=== PATIENT | male | born 1965 | race Caucasian/White ===

== ENCOUNTER 2017-01-30 20:02 | Emergency (ER) | payer OTHER, BC ==
[~2017-01-30] VITALS: Ht 175.3 cm; Wt 85.4 kg
[2017-01-30 20:13] VITALS: TEMP 36.9; Ht 175.3 cm; Wt 85.4 kg
[2017-01-30] MEDS ORDERED: CYAN10004 PO (20:25)
[2017-01-30] MEDS ORDERED: TAMS0.4C38 PO (20:25)
[2017-01-30] MEDS ORDERED: TADA10TA PO (20:25)
[2017-01-30] MEDS ORDERED: GLUCTAB18 PO (20:25)
[2017-01-30] MEDS ORDERED: REDCAP2 PO (20:25)
[2017-01-30] MEDS ORDERED: FLV1 PO (20:25)
[2017-01-30] MEDS ORDERED: METH2.5T PO (20:25)
[2017-01-30] MEDS ORDERED: CHOL100027 PO (20:25)
[2017-01-30] MEDS ORDERED: UNKNOWN ANTIBIOTIC PO (20:25)
[2017-01-30] MEDS ORDERED: HYDROCODONE/ACETAMOPHEN 5/325MG TAB PO STA (20:42)
--- NOTE | 2017-01-30 21:17 | DIAGNOSTIC IMAGING REPORT ---
LEFT KNEE 3 VIEWS CLINICAL HISTORY: knee pain after twisting injury, eval fx, dislocation pain COMPARISON: None. DISCUSSION: The bones and joint spaces appear intact. There is no evidence of fracture, dislocation or bony disease. There is no evidence for soft tissue swelling. IMPRESSION: Negative study. Electronically signed by: Abdelrahman Fong M.D. 01/30/2017 9:16 PM Dictated Date/Time: 01/30/2017 9:16 PM
--- NOTE | 2017-01-30 22:36 | EMERGENCY ROOM VISIT NOTE ---
ED Visit Note First contact with patient: 20:27 CHIEF COMPLAINT: Left knee pain HISTORY OF PRESENT ILLNESS: This 51-year-old male patient presents to the emergency department with his spouse after sustaining an injury to the left knee earlier today. Patient states he was walking on uneven ground, stepped on a rock and his knee twisted slightly, he states he felt a pop in the knee with instant pain. The patient denies any other injuries besides their knee. The patient denies swelling or bruising. There is pain to the medial aspect of the knee. They rate the pain as throbbing and 8/10. The patient states they are able to walk on it, but has significant pain with any attempts to bend or straighten the knee. No numbness or tingling. No previous injuries to this knee. No ankle, foot or hip pain. REVIEW OF SYSTEMS: A 6 system review of systems was completed with positives and pertinent negatives listed in the HPI. ALLERGIES: See body of chart. MEDICATIONS: See body of chart. PMH: See body of chart. SOCIAL HISTORY: See body of chart. PHYSICAL EXAM: Vital Signs: Reviewed Nurse's notes, vital signs stable. GENERAL : Awake and alert, no acute distress, but appears in pain, well-developed, well- nourished. MENTAL STATUS: Alert, oriented to person place and time, and cooperative. MUSCULOSKELETAL: The left knee is not swollen. There is no ecchymosis. There is no joint effusion present. The patient is tender inferiorly and medially to the patella. There is no joint line tenderness. The patella does not subluxate. Range of motion is severely limited due to pain. Strength of the quads and hamstrings is 5/5. Cindy's is pain positive. Kian's and Anterior Drawer tests are negative. There is pain with varus and valgus stressing. The foot and toes are warm and well-perfused. Dorsalis pedis pulse 2+. Sensation to pain and light touch is intact. Capillary refill less than 2 seconds. EMERGENCY DEPARTMENT COURSE: I examined the patient. X-rays of the left knee were reviewed by myself and read by radiology and reveal no acute bony abnormality and no effusion. The patient was placed in a knee immobilizer under my direction and the position was satisfactory. The patient was instructed on the use of crutches. The patient was instructed to follow up with orthopedics. The patient was discharged home in good condition. LEFT KNEE 3 VIEWS CLINICAL HISTORY: knee pain after twisting injury, eval fx, dislocation pain COMPARISON: None. DISCUSSION: The bones and joint spaces appear intact. There is no evidence of fracture, dislocation or bony disease. There is no evidence for soft tissue swelling. IMPRESSION: Negative study. Current/Historical Medications Scheduled Cholecalciferol (Vitamin D 1000 Unit), 1,000 INTER.UNIT PO DAILY Cyanocobalamin (Vitamin B-12 1000 Mcg), 1,000 MCG PO DAILY Folic Acid (Folic Acid), 1 MG PO DAILY Glucosamine-Chondroitin (Osteo Bi-Flex Regular Str), 1 TAB PO DAILY Methotrexate (Methotrexate), 8 TABS PO WK Red Yeast Rice Extract (Red Yeast Rice), 1 TAB PO DAILY Tadalafil (Cialis), 10 MG PO UD Tamsulosin Hcl (Flomax), 0.4 MG PO DAILY [Unknown Antibiotic], 1 TAB PO QID Vital Signs Date Time Temp Pulse Resp B/P Pulse Ox O2 Delivery O2 Flow Rate FiO2 01/30/17 23:19 58 18 118/73 97 01/30/17 20:13 36.9 85 16 129/81 96 Room Air Medications Administered Medications (Trade) Dose Ordered Sig/Desi Route Start Time Stop Time Status Last Admin Dose Admin Acetaminophen/ Hydrocodone Bitart (Wheelwright 5/325 Tab) 1 tab NOW STAT PO 01/30/17 20:42 01/30/17 20:45 DC 01/30/17 20:50 1 TAB Acetaminophen/ Hydrocodone Bitart (Wheelwright 5/325mg Home Pack) 1 homepack UD ONCE PO 01/30/17 23:00 01/30/17 23:01 DC 01/30/17 23:15 1 HOMEPACK Departure Information Dispostion Home / Self-Care Condition GOOD Referrals Ubaldo Middleton D.O. (PCP) Johnny Acevedo D.O. Patient Instructions ED Sprain Knee, [facility] Additional Instructions You have been treated in the Emergency Department for Knee Pain. You have received pain medicine in the emergency department which impairs your ability to operate a vehicle. It is illegal for you to drive after receiving these medicines. You have been prescribed Wheelwright as to be used for pain control. This is a narcotic medication. You cannot drive or consume alcohol while on this medicine. This medicine should only be used for pain that cannot be controlled with dmwl-vdy-gfiqwht pain medicines. For pain control, you can use the following zehm-zkl-qlmtrwb medicines (if >12 yo): - Regular strength (325mg/tab) Tylenol (acetaminophen) 2 tabs every 4-6 hours as needed. Do not exceed 12 tablets in a 24 hour period. Avoid taking more than 4 grams (4000 mg) of Tylenol per day. This includes any other sources of acetaminophen you may take on a regular basis. - Regular strength (200 mg/tab) Advil (ibuprofen) 1-2 tabs every 4-6 hours as needed. Do not exceed a dose of 3200 mg per day. If this is a recent injury (<24 hrs), ice can be applied to the area of pain for the first 3 days to help decrease pain and inflammation. Ice massages can be performed by freezing water in a paper cup, peeling back the cup to expose the ice and then massaging over the affected area. You have been provided the number for an Orthopaedic Surgeon. You should call this number as soon as possible to establish a follow-up visit from today's Emergency Department visit. Keep the knee brace in place until cleared by Orthopedics. Use the crutches you have been provided to keep ALL weight off of the knee until weight bearing is tolerable. Return to the Emergency Department if your current symptoms worsen despite treatment course outlined above.
[2017-01-30] MEDS ORDERED: NORCO 5/325MG HOME PACK PO ONE (23:00)
[2017-01-30 23:19] VITALS: BP 118/73; PULSE 58; O2SAT 97
--- NOTE | 2017-02-03 07:50 | EDITING REQUIRED CODING QUERY ---
TREATMENT RENDERED WITHOUT A DIAGNOSIS 63 To promote full compliance with coding requirements relating to patient care, physician participation is requested in all cases of hand heel seat fitter uncertainty. Please assist us with the question(s) below: DOS 01/30/17 Coding Question: Please document the Final Diagnosis for this patient Provider Response: Thank you Kylah Sharif
== END 2017-01-30 23:25 | disposition home or self-care (01) ==
LOC: C.EDB 20:04 → C.EDD 23:25
DX: S83.92XA Sprain of unspecified site of left knee, initial encounter (principal); X50.1XXA Overexertion from prolonged static or awkward postures, initial encounter; Y92.480 Sidewalk as the place of occurrence of the external cause; Z79.899 Other long term (current) drug therapy

== ENCOUNTER → 2017-02-28 | Outpatient (CLI) | payer OTHER, BC ==
[~2017-02-28] MED LIST: CHOL100027 PO; CYAN10004 PO; FLV1 PO; GLUCTAB18 PO; METH2.5T PO; REDCAP2 PO; TADA10TA PO; TAMS0.4C38 PO; UNKNOWN ANTIBIOTIC PO
--- NOTE | 2017-02-28 13:45 | DIAGNOSTIC IMAGING REPORT ---
LEFT KNEE MRI HISTORY: Left knee pain. COMPARISON STUDY: Left knee 01/30/2017. TECHNIQUE: Multiplanar multisequence MRI of the left knee was performed according to standard department protocol without the use of contrast. FINDINGS: Menisci: The lateral meniscus is intact. There is a bucket-handle tear of the medial meniscus with a flipped fragment anterior to the posterior horn. There is also a complex tear involving the posterior horn of the medial meniscus which extends to the posterior meniscal root. There is a 7 mm parameniscal cyst at the body of the medial meniscus. Ligaments: The anterior and posterior cruciate ligaments are intact. The medial and lateral collateral ligaments are normal in appearance. Extensor mechanism: The quadriceps tendon and patellar ligament are intact. Small linear cystic focus within the medial aspect of the patellar ligament. This may represent a small ganglion cyst. Articular cartilage and bone: The articular cartilage is intact, and normal marrow signal intensity is seen throughout the imaged osseous structures. Joint effusion: None. Soft tissues: A 5.1 x 2.6 x 0.9 cm popliteal cyst. IMPRESSION: 1. Complex tear within the medial meniscus as described above with an associated bucket-handle component. 2. There is a 7 mm parameniscal cyst at the body of the medial meniscus. Electronically signed by: Silverio Jones M.D. 02/28/2017 1:43 PM Dictated Date/Time: 02/28/2017 1:36 PM
== END | disposition home or self-care (01) ==
LOC: C.MRI 11:14
PROVIDERS: ATTEND Physician Assistant
DX: M25.562 Pain in left knee (principal)

== ENCOUNTER → 2017-03-03 | Outpatient (CLI) | payer OTHER, BC ==
[2017-03-03 14:53] LABS: BASO % 1.2 %; BASO ABS # 0.08 K/uL (0-0.2); COMPLETE YES; EOS % 2.6 %; HEMATOCRIT 41.8 % (42-52); IG% 0.1 %; LYMPH % 27.5 %; LYMPH ABS # 1.89 K/uL (1.2-3.4); MEAN CELL VOLUME 96.3 fL (80-100); MEAN CORPUSCULAR HEMOGLOBIN 32.9 pg (25-34); MEAN CORPUSCULAR HGB CONC 34.2 g/dl (32-36); MEAN PLATELET VOLUME 12.1 fL (7.4-10.4); MONO % 8.9 %; NEUT % 59.7 %; PLATELET COUNT 247 K/uL (130-400); RED BLOOD COUNT 4.34 M/uL (4.7-6.1); WHITE BLOOD COUNT 6.87 K/uL (4.8-10.8)
[2017-03-03 15:18] LABS: CALCIUM 8.9 mg/dl (8.5-10.1)
[2017-03-03 15:21] LABS: BLOOD UREA NITROGEN 15 mg/dl (7-18); BUN/CREATININE RATIO 13.4 (10-20); CARBON DIOXIDE 27 mmol/L (21-32); CHLORIDE 107 mmol/L (98-107); GLUCOSE 87 mg/dl (70-99); POTASSIUM 4.4 mmol/L (3.5-5.1); SODIUM 142 mmol/L (136-145)
== END | disposition home or self-care (01) ==
LOC: C.LAB1850 11:34
PROVIDERS: ATTEND Physician Assistant
DX: S83.212A Bucket-handle tear of medial meniscus, current injury, left knee, initial encounter (principal); X58.XXXA Exposure to other specified factors, initial encounter

== ENCOUNTER → 2017-03-11 | Day surgery (SDC) | payer OTHER, BC ==
[2017-03-03 13:41] VITALS: Ht 175.3 cm; Wt 84.1 kg
[~2017-03-11] VITALS: Ht 175.3 cm; Wt 84.1 kg
[~2017-03-11] MED LIST changes: +ATROPINE SULFATE 0.1 MG/ML 5ML SYR IV PRN; +BUPIVACAINE/EPINEPHRINE 0.5% MPF 1:200,000 30 ML VIAL ONE; +CEFAZOLIN 2000 MG/60 ML D5W IV SCH; +DEXAMETHASONE SOD INJ 4 MG/ML VIAL ONE; +EpHEDrine SULFATE INJ 50 MG/ML AMP IV PRN; +FENTANYL CITRATE INJ 50 MCG/1 ML 2 ML VIAL IV PRN; +FENTANYL CITRATE INJ 50 MCG/1 ML 2 ML VIAL ONE; +HYDROCODONE/ACETAMOPHEN 5/325MG TAB PO PRN; +LACTATED RINGER'S 1000ML 1,000 ML IV SCH; +LIDOCAINE HCL 2% 2 ML VIAL (20MG/ML) ONE; +MIDAZOLAM HCL 1 MG/ML 2ML VIAL ONE; +MoRPHine SULFATE PF 1 MG/ML 10 ML AMP/VIAL ONE; +ONDANSETRON INJ 2 MG/ML 2 ML VIAL IV PRN; +ONDANSETRON INJ 2 MG/ML 2 ML VIAL ONE; +PROPOFOL IV EMULSION 10 MG/ML 20 ML VIAL IV ONE; +SODIUM CHLORIDE 0.9% 1000ML 1,000 ML IV SCH; -TAMS0.4C38 PO; -UNKNOWN ANTIBIOTIC PO
--- NOTE | 2017-03-11 06:40 | History & Physical Bridge Note ---
H&P Re-Evaluation Bridge Note: I have examined the patient, reviewed the History & Physical and in the interval since the performance of the History & Physical I have noted the following changes of clinical significance: No changes noted
--- NOTE | 2017-03-11 06:42 | Discharge Instructions ---
Discharge Instructions Date of Service Mar 11, 2017. Visit Reason for Visit: Left Knee Medial Meniscus Tear Discharge Discharge Diagnosis / Problem: same Discharge Goals Goal(s): Decrease discomfort, Improve function Medications Stopped Medications Name(s): na Restart Stopped Medication(s): use scripts as directed Activity Recommendations Activity Limitations: as noted below Lifting Limitations: until after follow-up appointment Exercise/Sports Limitations: until after follow-up appointment May Resume Sexual Activity: when tolerated Shower/Bathe: keep incision dry Driving or Machine Use: resume 1 day after discharge Weightbearing Status: Left weightbearing (as tolerated) Anesthesia . Post Anesthesia Instructions: If you have had General Anesthesia or IV Sedation: * Do not drive today. * Resume driving when surgeon permits. * Do not make important decisions or sign legal documents today. * Call surgeon for: 1. Temperature elevations greater than 101 degrees F. 2. Uncontrollable pain. 3. Excessive bleeding. 4. Persistent nausea and vomiting. 5. Medication intolerance (nausea, vomiting or rash). * For nausea and vomiting use only clear liquids such as: tea, soda, bouillon until nausea subsides, then gradually increase diet as tolerated. * If you have any concerns or questions, call your surgeon's office. If physician is unavailable and it is an emergency, call 911 or go to the nearest emergency room. . Instructions / Follow-Up Instructions / Follow-Up The following are instructions to follow after your Arthroscopic Knee Surgery. ACTIVITY RECOMMENDATIONS: * Minimize activity until your first visit after surgery. * No excessive walking, jogging, sports or laboring. * Return to activity is individualized. Most patients are able to return to every day activities within one month. * Return to sports or intensive labor usually occurs at 2-3 months. * Driving is not permitted until at least your first postoperative visit at a minimum. Please ask your doctor when it is safe to resume driving. If you have an automatic vehicle and your left leg has been operated on, then you may begin driving as soon as you are comfortable and can drive safely. SCHOOL/WORK RECOMMENDATIONS: * You may return to sedentary work or school when you are feeling more comfortable. This is usually 3-7 days after surgery. * Expect increased discomfort with increased activity. Continue to elevate and ice the leg as much as possible. MEDICATIONS: * You will have a prescription for pain medication and an anti-inflammatory medication after surgery. * Use the pain medication for severe pain and the anti-inflammatory for less severe pain. Once the pain medication has run out, try to use the anti-inflammatory medication. If this is not effective, contact the office for assistance. * The pain medication may cause nausea, constipation and drowsiness. You should see how they affect you before driving or similar activity. * The anti-inflammatory medication may cause stomach upset and bleeding. If this occurs let your doctor know immediately . * Take a stool softener like Colace or a laxative like Senokot to prevent constipation. DIET: * Resume previous diet. SPECIAL CARE: ICE: You have the option of an ice cooler, gel packs or ice bags. * If you have an ice cooler, refer to the instructions for that device. The ice cooler may be used continuously. * If you do not have an ice cooler, you will need to use ice bags or gel packs. Do not apply ice directly to the skin. Use a thin dressing or alfa shirt between the skin and ice bag. Apply ice for 20-30 minutes and repeat every 2-4 hours. This is especially important for the first 7-10 days after surgery. Once the pain improves, use ice as needed. ELEVATION: * Keep your leg elevated at or above the level of your heart as much as possible. * Expect some increased discomfort and swelling if you are standing for any length of time. * When lying down, avoid placing anything under your knee. Rather, prop your leg up by placing several pillows under your heel or calf. DRESSING: * Your dressing will be changed at your first therapy appointment approximately 4-5 days after surgery. Band-aids, tape strips or gauze may be applied. You may then change your dressing daily. * Reapply dressing followed by the John Paul wrap or Tubi-dopeman stockinet and EBIce cooling pad (if chosen). * Always wash your hands prior to touching the incision area. * Once the stitches are removed, you may leave the wound open to air or cover with an John Paul wrap or Tubi-dopeman stockinet. * If you have been given a white elastic stocking (SERINA hose), wear as much as possible for the first 1-3 weeks depending on swelling. * Expect some bloody drainage for the first few days after surgery. * Leave the tape strips, if present, in place for 5-7 days. * Band-aids and gauze may be changed daily. CRUTCHES: * You will need to use crutches after surgery. * You may gradually progress to full weight bearing as tolerated and wean off the crutches unless otherwise advised. * Your therapist can provide assistance weaning off crutches. * Patients who have a microfracture done may need to be toe-touch weight- bearing for 4-6 weeks. BATHING: * You may shower or sponge-bathe immediately after surgery. * The dressing will need to be covered with a plastic bag or plastic wrap until the dressing is changed on the fourth or fifth day after surgery. * Once the dressing has been changed on the fourth or fifth day after surgery, you may shower and get the incision wet. * Wash with regular soap and water. * Do not bathe (submerge the incision), soak, swim or use a hot tub until the incision is completely healed over with normal skin and the doctor has given the OK to proceed. * There is no need to apply any ointments, powders or salves to your incision. * Do not apply alcohol or hydrogen peroxide directly to the incision. * Diluted peroxide (50:50 mixture with sterile saline) may be used to clean dried blood from around the incision area. BRACE: * Bracing is generally not needed after routine Arthroscopic Knee surgery. THERAPY: * You will begin therapy four or five days after surgery. * Organized therapy with the therapist is important for the first 4-6 weeks after surgery. During that time you will attend therapy 1-3 times per week. * You will also need to do daily exercises for range of motion and strength as instructed. PROBLEMS/QUESTIONS: * If you have any problems such as severe pain, numbness, tingling or high fevers or if you have any questions, please contact the office at [phone]. * It is not uncommon to have some numbness and tingling after the surgery especially if you have had a nerve block done. This should gradually improve over the first 1- 2 days. If this persists longer or worsens please contact the office. FOLLOW UP VISIT: * If not already scheduled, please call the office at to schedule a follow-up appointment for 10 days, 6 weeks and 3 months after surgery. Diet Recommendations Recommended Home Diet: resume previous diet Procedures Procedures Performed: ascopy pmm/debridement Pending Studies Studies pending at discharge: no Medical Emergencies . Who to Call and When: Medical Emergencies: If at any time you feel your situation is an emergency, please call 911 immediately. . Non-Emergent Contact Non-Emergency issues call your: Specialist Call Non-Emergent contact if: temperature is above 101.5 . . "Provider Documentation" section prepared by Tom Lorenzana. .
--- NOTE | 2017-03-11 07:27 | [facility] Post Operative Brief Note ---
Immediate Operative Summary Operative Date Mar 11, 2017. Pre-Operative Diagnosis Left Knee Medial Meniscus Tear Post-Operative Diagnosis same Procedure(s) Performed Left Knee Arthroscopic, Partial Medial Meniscectomy Surgeon Dr. Speedy Lorenzana Raw Hide Trimmer Surgeon(s) Dr. Candelario Tellez, Cruz Silverman PA-C Estimated Blood Loss trace Findings mm tear bucket non repairable Fluids (cc crystalloids) 500cc Specimens none Drains none Anesthesia LMA Complication(s) None Disposition Recovery Room / PACU
--- NOTE | 2017-03-11 07:58 | OPERATIVE REPORT ---
DATE OF OPERATION: 03/11/2017 SURGEON: Dr. Lorenzana. SOLAR SALES REPRESENTATIVE AND ASSESSOR: Dr. Vargas. SECOND SOLAR SALES REPRESENTATIVE AND ASSESSOR: CORRINE Silverman. PREOPERATIVE DIAGNOSIS: Bucket handle tear, medial meniscus, left knee. POSTOPERATIVE DIAGNOSIS: Same. OPERATION PERFORMED: Resection of bucket handle tear of medial meniscus, left knee. PERIOPERATIVE SITUATION: Medically cleared male, who has had intermittent locking and catching of his knee with physical exam, x-ray and MRI scan consistent with a big bucket handle tear of his medial meniscus. OPERATION: The patient appropriately identified, site verified, consent verified, 2 grams of Ancef confirmed as being given. The left lower extremity was examined revealing no ligamentous instability. It was then sterilely injected with 20 mL of 0.5% Marcaine with epinephrine and 5 mg of Duramorph for postoperative pain control. The knee was then prepped and draped in usual routine fashion. Inframedial and inferolateral portals injected with 3.5 mL of 0.5% Marcaine with epinephrine. Anterolateral portal was then made and the knee inspected. The anteromedial portal made under direct visualization. There was a completely displaced, markedly deformed, irreparable, very frayed medial meniscus bucket handle tear. It was very elongation. It was resected easily with the shaver on its posterior attachment and then anteriorly with a shaver as well indicating the chronicity of the tear and a poor quality of the tissue. Once the meniscus was shaved, minor trimming of the posterior horn was taken at the bucket handle area, but the root itself was left intact. The remaining part of the knee had some minor synovitis, which was then incidentally debrided. The lateral meniscus was normal. All instruments and fluid were then removed. Approximately 50% of the meniscus was resected medially and portals were closed with 3-0 nylon, dressed with Xeroform, 4 x 4 gauze, sterile Webril, ABD pads and above knee SERINA stocking. DVT prophylaxis per protocol. Immediate weightbearing, immediate range of motion. Keep wound clean and dry. Able to drive when off narcotics. I attest to the content of the Intraoperative Record and any orders documented therein. Any exceptions are noted below. MTDD
[2017-03-11 08:25] VITALS: TEMP 36.5
[2017-03-11 08:57] VITALS: BP 123/67; PULSE 60; O2SAT 98
--- NOTE | 2017-03-11 09:12 | Anesthesia Progress Nt - [facility] ---
Anesthesia Post Op Note Date & Time Mar 11, 2017 at 09:12 Vital Signs Pain Intensity: 0 Vital Signs Past 12 Hours Date Time Temp Pulse Resp B/P (MAP) Pulse Ox O2 Delivery O2 Flow Rate FiO2 03/11/17 08:57 60 14 123/67 (85) 98 Room Air 03/11/17 08:25 36.5 62 16 119/67 (84) 99 Room Air 03/11/17 08:20 61 10 96 03/11/17 08:20 59 10 03/11/17 08:16 36.2 58 16 111/67 96 Room Air 03/11/17 08:16 111/67 03/11/17 08:15 56 2 96 03/11/17 08:15 55 2 03/11/17 08:11 116/69 03/11/17 08:10 56 2 03/11/17 08:10 57 2 95 03/11/17 08:06 126/74 03/11/17 08:05 61 12 97 03/11/17 08:05 62 12 03/11/17 08:01 116/76 03/11/17 08:00 68 16 97 03/11/17 08:00 67 16 03/11/17 07:56 114/75 03/11/17 07:55 69 13 03/11/17 07:55 67 13 97 03/11/17 07:51 117/63 03/11/17 07:50 63 9 99 03/11/17 07:50 63 9 03/11/17 07:46 113/63 03/11/17 07:45 60 11 03/11/17 07:45 59 11 98 03/11/17 07:41 122/62 03/11/17 07:40 63 10 98 03/11/17 07:40 63 10 03/11/17 07:36 117/69 03/11/17 07:35 36.7 64 16 117/69 98 Room Air 03/11/17 07:35 63 17 98 03/11/17 07:35 65 17 03/11/17 06:26 36.6 64 16 133/78 (96) 97 Room Air Notes Mental Status: alert / awake / arousable, participated in evaluation Pt Amnestic to Procedure: Yes Nausea / Vomiting: adequately controlled Pain: adequately controlled Airway Patency, RR, SpO2: stable & adequate BP & HR: stable & adequate Hydration State: stable & adequate Anesthetic Complications: no major complications apparent
--- NOTE | 2017-03-11 16:06 | OPERATIVE REPORT ---
DATE OF OPERATION: 03/11/2017 PREOPERATIVE DIAGNOSIS: Left knee medial meniscal bucket handle tear. POSTOPERATIVE DIAGNOSIS: Left knee, same. PROCEDURE: Left knee arthroscopy with resection of bucket handle tear of the medial meniscus. SURGEON: Tom Lorenzana MD BLACKSMITH ASSISTANT: Don Sousa MD SECOND MANAGER MANUFACTURING: Cruz Silverman PA-C. HISTORY OF PRESENT ILLNESS: This 52-year-old white male presented to the office with complaints of left knee pain as well as intermittent locking and catching of the knee after injuring himself while doing [employer] duties. He had x-rays and MRI obtained. He elected to proceed with surgical intervention after being educated about potential risks and outcomes. OPERATION: The patient was taken to the operating room, where he was given general anesthetic. He was prepped and draped in the usual sterile fashion. Please see Dr. Lorenzana's operative report for specifics of the procedure. I was present for the entire case from initial patient positioning through final wound closure. Assistance was provided in patient positioning, arthroscopy, and final wound closure. The patient was taken to the recovery room in satisfactory condition. I attest to the content of the Intraoperative Record and any orders documented therein. Any exception s are noted below.
== END | disposition home or self-care (01) ==
LOC: X.SURG 06:14
PROVIDERS: ATTEND Physical Medicine & Rehabilitation Sports Medicine
DX: S83.212A Bucket-handle tear of medial meniscus, current injury, left knee, initial encounter (principal); X50.9XXA Other and unspecified overexertion or strenuous movements or postures, initial encounter; Y93.02 Activity, running; L40.50 Arthropathic psoriasis, unspecified; N40.0 Benign prostatic hyperplasia without lower urinary tract symptoms; K21.9 Gastro-esophageal reflux disease without esophagitis; Z98.1 Arthrodesis status

== ENCOUNTER → 2017-04-28 | Outpatient (CLI) | payer OTHER, BC ==
[~2017-04-28] MED LIST changes: -ATROPINE SULFATE 0.1 MG/ML 5ML SYR IV PRN; -BUPIVACAINE/EPINEPHRINE 0.5% MPF 1:200,000 30 ML VIAL ONE; -CEFAZOLIN 2000 MG/60 ML D5W IV SCH; -DEXAMETHASONE SOD INJ 4 MG/ML VIAL ONE; -EpHEDrine SULFATE INJ 50 MG/ML AMP IV PRN; -FENTANYL CITRATE INJ 50 MCG/1 ML 2 ML VIAL IV PRN; -FENTANYL CITRATE INJ 50 MCG/1 ML 2 ML VIAL ONE; -HYDROCODONE/ACETAMOPHEN 5/325MG TAB PO PRN; -LACTATED RINGER'S 1000ML 1,000 ML IV SCH; -LIDOCAINE HCL 2% 2 ML VIAL (20MG/ML) ONE; -MIDAZOLAM HCL 1 MG/ML 2ML VIAL ONE; -MoRPHine SULFATE PF 1 MG/ML 10 ML AMP/VIAL ONE; -ONDANSETRON INJ 2 MG/ML 2 ML VIAL IV PRN; -ONDANSETRON INJ 2 MG/ML 2 ML VIAL ONE; -PROPOFOL IV EMULSION 10 MG/ML 20 ML VIAL IV ONE; -SODIUM CHLORIDE 0.9% 1000ML 1,000 ML IV SCH
--- NOTE | 2017-04-28 13:31 | DIAGNOSTIC IMAGING REPORT ---
LEFT KNEE INCLUDING BILATERAL STANDING AP VIEWS (4 VIEWS) CLINICAL HISTORY: LEFT KNEE PAIN COMPARISON: 01/30/2017 DISCUSSION: No acute fractures are visualized. There is no radiographic evidence of a joint effusion. There is no erosive disease. No destructive lesions are evident. There are minor degenerative changes. IMPRESSION: Minor degenerative change. No evidence of acute fracture. Electronically signed by: Harpreet Kim M.D. 04/28/2017 1:30 PM Dictated Date/Time: 04/28/2017 1:29 PM
== END | disposition home or self-care (01) ==
LOC: C.RDSM 14:20
PROVIDERS: ATTEND Physician Assistant
DX: Z96.652 Presence of left artificial knee joint (principal)